=== PATIENT | male | born 1955 | race Caucasian/White ===

== ENCOUNTER 2021-03-29 12:37 | Inpatient (IN) ==
[2021-03-29] MEDS ORDERED: Ipratropium/Albuterol Neb 3 ML IH PRN (12:43)
[2021-03-29] MEDS ORDERED: Nitroglycerin Spray 4.9 GM BOTTLE SL PRN (12:43)
[2021-03-29] MEDS ORDERED: *HR* OxyCODONE/APAP 5/325 TABLET PO PRN (12:43)
[2021-03-29] MEDS ORDERED: Dextrose Gel 15 GM/37.5 ML TUBE PO PRN ×2 (12:46)
[2021-03-29] MEDS ORDERED: *HR* Dextrose 50 % in Water (Vial) 50 ML VIAL IVP PRN (12:46)
[2021-03-29] MEDS ORDERED: D5% in Water 1,000 ML IVC PRN (12:46)
[2021-03-29] MEDS: Insulin LISPRO 300 UNITS/3 ML VIAL SUBQ SCH ×3 (19:35→20:49)
[2021-03-29] MEDS: Gabapentin 300 MG CAPSULE PO SCH (20:04)
[2021-03-29] MEDS: Melatonin 3 MG TABLET PO SCH (20:04)
[2021-03-29] MEDS: carvediloL 6.25 MG TABLET PO SCH (20:04)
[2021-03-29] MEDS ORDERED: Insulin DETEMIR 100 UNIT/ML per UNIT SUBQ ONE (21:00)
[2021-03-29] MEDS ORDERED: Nitroglycerin 0.4 MG TAB.SUBL SL PRN (23:53)
[2021-03-30 06:00] LABS: Eosinophils % 0.7 %; Hematocrit 44.1 % (37.5-50.1); Hemoglobin 13.9 g/dL (12.9-16.9); Immature Granulocytes % 0.3 % (0-4); Lymphocytes # 1.2 K/mcL (0.6-4.6); Lymphocytes % 19.3 %; Mean Corpuscular HGB Conc 31.5 g/dL (31.6-35.5); Mean Corpuscular Hemoglobin 27.1 pg (28.0-33.3); Mean Corpuscular Volume 86.1 fL (83.0-100.0); Mean Platelet Volume 11.9 fL (9.4-12.4); Monocytes # 0.7 K/mcL (0.0-1.3); Monocytes % 12.3 %; Platelet Count 127 K/mcL (140-400); Red Blood Count 5.12 M/mcL (4.19-5.50); Red Cell Distribution Width 15.9 % (11.5-14.5); Segmented Neutrophils % 67.4 %
[2021-03-30 06:29] LABS: BUN/Creatinine Ratio 26 (6-26); Blood Urea Nitrogen 32 mg/dL (8-23); Calcium 8.9 mg/dL (8.6-10.3); Carbon Dioxide 39 mEq/L (23-29); Chloride 93 mEq/L (98-107); Glucose 250 mg/dL (70-105); Magnesium 2.2 mg/dL (1.6-2.6); Osmolality,Calculated 297 (280-300); Potassium 3.8 mEq/L (3.5-5.1); Sodium 136 mEq/L (136-145); eGFR For African Americans > 60 (> 60); eGFR For Non-African Americans > 60 (> 60)
[2021-03-30] MEDS: *HR* Enoxaparin 40 MG/0.4 ML SYRINGE SQ SCH (06:33)
[2021-03-30] MEDS: dexAMETHasone 4 MG TABLET PO SCH (09:35)
[2021-03-30] MEDS: allopurinoL 100 MG TABLET PO SCH (09:35)
[2021-03-30] MEDS: Aspirin Enteric Coated 81 MG Tablet PO SCH (09:35)
[2021-03-30] MEDS: Gabapentin 300 MG CAPSULE PO SCH ×3 (09:35→21:54)
[2021-03-30] MEDS: Loratadine 10 MG TABLET PO SCH (09:35)
[2021-03-30] MEDS: carvediloL 6.25 MG TABLET PO SCH ×2 (09:36→17:13)
[2021-03-30] MEDS: Insulin LISPRO 300 UNITS/3 ML VIAL SUBQ SCH ×7 (09:36→21:58)
[2021-03-30] MEDS: Torsemide 20 MG TABLET PO SCH ×2 (09:36→17:13)
[2021-03-30] MEDS: lisinopriL 5 MG TABLET PO SCH (09:36)
[2021-03-30] MEDS: Insulin DETEMIR 100 UNIT/ML X5UNITS SUBQ SCH ×3 (10:02→21:58)
[2021-03-30] MEDS: Melatonin 3 MG TABLET PO SCH (21:55)
[2021-03-31] MEDS: *HR* Enoxaparin 40 MG/0.4 ML SYRINGE SQ SCH (05:48)
[2021-03-31] MEDS: dexAMETHasone 4 MG TABLET PO SCH (08:48)
[2021-03-31] MEDS: lisinopriL 5 MG TABLET PO SCH (08:48)
[2021-03-31] MEDS: Gabapentin 300 MG CAPSULE PO SCH ×3 (08:48→20:34)
[2021-03-31] MEDS: carvediloL 6.25 MG TABLET PO SCH ×2 (08:49→16:39)
[2021-03-31] MEDS: Aspirin Enteric Coated 81 MG Tablet PO SCH (08:49)
[2021-03-31] MEDS: Torsemide 20 MG TABLET PO SCH ×2 (08:49→16:38)
[2021-03-31] MEDS: allopurinoL 100 MG TABLET PO SCH (08:49)
[2021-03-31] MEDS: Loratadine 10 MG TABLET PO SCH (08:50)
[2021-03-31] MEDS: Insulin DETEMIR 100 UNIT/ML X5UNITS SUBQ SCH ×2 (08:50→20:32)
[2021-03-31] MEDS: Insulin LISPRO 300 UNITS/3 ML VIAL SUBQ SCH ×7 (08:51→20:34)
[2021-03-31] MEDS ORDERED: calcitrioL 0.25 MCG CAPSULE PO SCH (09:00)
[2021-03-31] MEDS: Melatonin 3 MG TABLET PO SCH (20:34)
[2021-04-01 04:55] LABS: Basophils % 0.1 %; Eosinophils # 0.1 K/mcL (0.0-0.6); Eosinophils % 1.8 %; Hematocrit 44.4 % (37.5-50.1); Immature Granulocytes % 0.3 % (0-4); Lymphocytes # 1.8 K/mcL (0.6-4.6); Lymphocytes % 23.9 %; Mean Corpuscular HGB Conc 31.5 g/dL (31.6-35.5); Mean Corpuscular Hemoglobin 27.3 pg (28.0-33.3); Mean Corpuscular Volume 86.7 fL (83.0-100.0); Mean Platelet Volume 12.4 fL (9.4-12.4); Monocytes # 0.8 K/mcL (0.0-1.3); Monocytes % 10.6 %; Neutrophils # 4.9 K/mcL (1.6-8.9); Platelet Count 125 K/mcL (140-400); Red Blood Count 5.12 M/mcL (4.19-5.50); Red Cell Distribution Width 16.5 % (11.5-14.5); Segmented Neutrophils % 63.3 %; White Blood Count 7.7 K/mcL (4.3-11.1)
[2021-04-01 05:07] LABS: Alanine Aminotransferase 84 Units/L (7-52); Albumin 2.9 g/dL (3.5-5.7); Alkaline Phosphatase 118 Units/L (34-104); Aspartate Amino Transferase 36 Units/L (13-39); BUN/Creatinine Ratio 30 (6-26); Bilirubin,Total 1.3 mg/dL (0.3-1.0); Blood Urea Nitrogen 32 mg/dL (8-23); Calcium 8.7 mg/dL (8.6-10.3); Carbon Dioxide 37 mEq/L (23-29); Chloride 93 mEq/L (98-107); Globulin 2.8 g/dL (2.4-3.5); Glucose 143 mg/dL (70-105); Osmolality,Calculated 289 (280-300); Potassium 4.1 mEq/L (3.5-5.1); Sodium 135 mEq/L (136-145); Total Protein 5.7 g/dL (6.4-8.9); eGFR For African Americans > 60 (> 60); eGFR For Non-African Americans > 60 (> 60)
[2021-04-01] MEDS: *HR* Enoxaparin 40 MG/0.4 ML SYRINGE SQ SCH (05:12)
[2021-04-01 07:47] VITALS: BP 114/55; RESP 16; TEMP 97.7
[2021-04-01 08:27] LABS: Ferritin 305 ng/mL (20-250)
[2021-04-01] MEDS: Torsemide 20 MG TABLET PO SCH (09:13)
[2021-04-01] MEDS: lisinopriL 5 MG TABLET PO SCH (09:14)
[2021-04-01] MEDS: allopurinoL 100 MG TABLET PO SCH (09:14)
[2021-04-01] MEDS: Gabapentin 300 MG CAPSULE PO SCH (09:14)
[2021-04-01] MEDS: carvediloL 6.25 MG TABLET PO SCH (09:14)
[2021-04-01] MEDS: Aspirin Enteric Coated 81 MG Tablet PO SCH (09:15)
[2021-04-01] MEDS: Insulin LISPRO 300 UNITS/3 ML VIAL SUBQ SCH ×2 (09:15→09:16)
[2021-04-01] MEDS: Loratadine 10 MG TABLET PO SCH (09:15)
[2021-04-01] MEDS: Insulin DETEMIR 100 UNIT/ML X5UNITS SUBQ SCH (09:34)
[2021-04-01 10:23] VITALS: PULSE 79; O2SAT 86
== END 2021-04-01 12:11 | disposition home health service (06) | DRG 945 ==
LOC: INPGRE 17:22
PROVIDERS: ADMIT Family Medicine; ATTEND Family Medicine